=== PATIENT | male | born 1955 | race Caucasian/White ===

== ENCOUNTER 2016-09-10 10:25 | Day surgery (SDC) | payer OTHER ==
[~2016-09-10] VITALS: Ht 180.3 cm; Wt 73.0 kg
[~2016-09-10 10:25] MED LIST: PRE10 PO; Sodium Chloride LOK Flush 10 mL Syringe IV PRN; fentaNYL-PF 50 mCg/mL 2 mL Inj IVPUSH PRN
[2016-09-10 10:51] VITALS: BP 132/81; PULSE 69; RESP 14; O2SAT 98
[2016-09-10] MEDS: 0.9% Sodium Chloride 1,000 ML IV SCH ×2 (11:27→12:01)
[2016-09-10 12:14] VITALS: BP 118/76; PULSE 66; RESP 16; O2SAT 97
[2016-09-10 12:23] VITALS: BP 110/67; PULSE 70; RESP 16; O2SAT 96
[2016-09-10 12:28] VITALS: BP 101/75; PULSE 87; RESP 16; O2SAT 96
--- NOTE | 2016-09-10 14:34 | ENDO ---
[address] [address] ENDOSCOPY PROCEDURE PATIENT: EILEEN SIM : 1955 MR#: [id number] ADMIT: 09/10/2016 JOB ID: [id number] DATE: 09/10/2016 PRIMARY PROVIDER: Anthony Alexis MD PROCEDURE: Colonoscopy with biopsies. INDICATIONS: A 61-year-old male with Crohn colitis reporting for surveillance. EQUIPMENT: PCF H 180 AL. SEDATION: 1. 4 mg Versed. 2. 75 mcg fentanyl. COMPLICATIONS: None identified. BOWEL PREPARATION: Fair, adequate examination. PROCEDURAL INFORMATION: After the risks and benefits were explained, written and verbal informed consent was obtained. The patient was brought into the endoscopy suite and placed into the left lateral decubitus position. Sedation was achieved using the above-stated medications with the addition of oxygen via nasal cannula. A digital rectal examination was accomplished. No pathology appreciated. The scope was introduced into the rectum and advanced under direct visualization to the level of the cecum, as identified by the appendiceal orifice and ileocecal valve. The terminal ileum was interrogated. The scope was then slowly withdrawn to carefully examine the mucosa for any defects or lesions. Multiple direct views were made through the dentate line for exclusion of pathology. The colon was decompressed. The scope removed from the patient who tolerated the procedure well. FINDINGS: The terminal ileum did not demonstrate any element of inflammation visually. There was some mild erythema mostly through the mid colon, i.e., mid sigmoid through to about the hepatic flexure. This was characterized by granularity, erythema but no ulcers or erosions. I did not see any polyps or mass lesions throughout. Segmental biopsies were taken from the ascending, transverse, descending, sigmoid and finally the rectum for histopathologic analysis. ENDOSCOPIC DIAGNOSES: 1. Mild patchy colopathy through the mid colon. 2. Otherwise visually unremarkable. RECOMMENDATIONS: 1. Await histopathology. 2. No medical intervention is pursued at present and the patient is clinically doing quite well. 3. Repeat colonoscopy two years' time.
--- NOTE | 2016-09-11 14:14 | PATH ---
SURGICAL PATHOLOGY Attending Physician:Ike Jeffries CASE STATUS: Signed Out PATIENT NAME: EILEEN SIM PID: [id number] : 1955 DATE COLLECTED:09/10/2016 22:36 SPECIMEN: 1: Colon, Biopsy 2: Colon, Biopsy 3: Colon, Biopsy 4: Colon, Biopsy 5: Rectum, Biopsy CLINICAL HISTORY: 1). ASCENDING COLON BIOPSY 2). TRANSVERSE COLON BIOPSY 3). DESCENDING COLON BIOPSY 4). SIGMOID COLON BIOPSY 5). RECTAL BIOPSY FINAL DIAGNOSIS: 1. Ascending Colon Biopsy: Mild active colitis with rare granulomas. The mucosal glandular architecture is unremarkable. No evidence of malignancy or dysplasia. 2. Transverse Colon Biopsies: Mild active colitis with rare granulomas. The mucosal glandular architecture is unremarkable. No evidence of malignancy or dysplasia. 3. Descending Colon Biopsy: Acute colitis with rare granulomas and mild distortion of the glandular architecture. No evidence of malignancy or dysplasia. 4. Sigmoid Colon Biopsy: Acute colitis with rare granulomas. The mucosal glandular architecture is unremarkable. No evidence of malignancy or dysplasia. 5. Rectal Biopsy: Normal colonic mucosa. No evidence of malignancy or dysplasia. ICD10: K50.9 GROSS DESCRIPTION: The specimen is received in five formalin filled containers labeled with the patient's name. 1). The specimen is sublabeled "ascending colon" and consists of 2 portions of tissue which aggregate to 0.3 x 0.3 x 0.3 CM. The specimen is entirely submitted in cassette 1A. 2). The specimen is sublabeled "transverse colon" and consists of 3 tiny portions of tissue which aggregate to 0.3 x 0.2 x 0.2 CM. The specimen is entirely submitted in cassette 2A. 3). The specimen is sublabeled "descending colon" and consists of 2 portions of tissue which aggregate to 0.3 x 0.3 x 0.2 CM. The specimen is entirely submitted in cassette 3A. 4). The specimen is sublabeled "sigmoid colon" and consists of 2 portions of tissue which aggregate to 0.3 x 0.3 x 0.2 CM. The specimen is entirely submitted in cassette 4A. 5). The specimen is sublabeled "rectal" and consists of 2 portions of tissue which aggregate to 0.2 x 0.2 x 0.2 CM. The specimen is entirely submitted in cassette 5A. 09/10/2016 [facility] ICD-9 CODES: CPT CODES: 1: 95671 2: 96791 3: 78097 4: 21414 5: 92945 Electronically Signed Out Pavel Bello MD [facility] [address], [place] [address] Technical component performed at [facility], [address], [place], [address]
== END 2016-09-10 23:59 | disposition home or self-care (01) ==
LOC: END 10:25
PROVIDERS: ATTEND Internal Medicine Gastroenterology
DX: K50.119 Crohn's disease of large intestine with unspecified complications (principal); Z86.010 Personal history of colon polyps; E78.2 Mixed hyperlipidemia; Z80.0 Family history of malignant neoplasm of digestive organs; R73.01 Impaired fasting glucose
CPT/HCPCS: 45380; 99153; G0500; J7030